=== PATIENT | female | born 1955 | race Hispanic/Latino ===

== ENCOUNTER 2017-10-24 18:13 | Emergency (ER) | payer MEDICARE ==
[2017-10-24 18:43] LABS: BASOPHILS % (AUTO) 0.3 % (0.0-5.0); EOSINOPHILS % (AUTO) 0.1 % (0.0-8.0); HEMATOCRIT 32.3 % (36-48); MEAN CORPUSCULAR HGB CONC 34.9 g/dL (32.0-36.0); MEAN CORPUSCULAR VOLUME 88.7 fL (79-99); MONOCYTES % (AUTO) 0.3 % (3.0-13.0); NEUTROPHILS % (AUTO) 96.3 % (40.0-77.0); PLATELET COUNT (AUTO) 168 K/uL (130-400); RED BLOOD CELL COUNT(AUTO) 3.64 MIL/uL (4.00-5.50); RED CELL DISTRIBUTION WIDTH 16.1 % (11.0-15.5)
[2017-10-24 18:52] LABS: CREATININE 0.8 mg/dL (0.5-1.5); POTASSIUM 3.5 mmol/L (3.5-5.1)
[2017-10-24] MEDS ORDERED: SODIUM CHLORIDE 0.9% 1000ML 1,000 ML IV ONE (18:55)
[2017-10-24] MEDS ORDERED: ACETAMINOPHEN 650 MG SUPPOSITORY RC ONE (18:55)
[2017-10-24] MEDS ORDERED: ONDANSETRON HCL MDV 20ML 2 MG/ML VIAL ONE (18:55)
[2017-10-24 18:56] LABS: ALBUMIN 3.4 g/dL (3.5-5.0); BILIRUBIN,TOTAL 0.9 mg/dL (0.2-1.0); TOTAL PROTEIN, SERUM 6.6 g/dL (6.0-8.3)
[2017-10-24 19:35] LABS: APPEARANCE,URINE Clear (CLEAR); BILIRUBIN,URINE Negative (NEGATIVE); COLOR,URINE Yellow (YELLOW); GLUCOSE, URINE (UA) Negative (NEGATIVE); KETONES,URINE Negative (NEGATIVE); LEUKOCYTE ESTERASE ,URINE Negative (NEGATIVE); NITRATE,URINE Negative (NEGATIVE); OCCULT BLOOD,URINE Moderate (NEGATIVE); PROTEIN,URINE POS 1+ (NEGATIVE)
[2017-10-24 19:44] LABS: BACTERIA,URINE Few /HPF (None Seen); SQUAMOUS EPITHELIAL CELL,UR 0-2 /HPF (0-2); WBC,URINE 0-1 /HPF (0-1)
[2017-10-24] MEDS ORDERED: DICYCLOMINE HCL 10 MG/ML 2ML AMP IM ONE (20:51)
== END 2017-10-24 23:50 | disposition home or self-care (01) ==
LOC: EDH 18:13
DX: R10.12 Left upper quadrant pain (principal); R50.9 Fever, unspecified
CPT/HCPCS: 36415; 76700; 80053; 83690; 85025; 96361; 96372; 96374; 99285; J0500; J7030

== ENCOUNTER 2018-04-15 04:25 | Emergency (ER) | payer MEDICARE ==
[2018-04-15] MEDS ORDERED: ONDANSETRON HCL 4 MG/2 ML VIAL ONE (04:33)
[2018-04-15] MEDS ORDERED: MORPHINE SULFATE 4 MG/1ML SYG ONE (04:33)
== END 2018-04-15 06:31 | disposition home or self-care (01) ==
LOC: EDH 04:25
DX: S42.142A Displaced fracture of glenoid cavity of scapula, left shoulder, initial encounter for closed fracture (principal); Z94.4 Liver transplant status; W18.39XA Other fall on same level, initial encounter; Y93.89 Activity, other specified; Y92.009 Unspecified place in unspecified non-institutional (private) residence as the place of occurrence of the external cause; Y99.8 Other external cause status
CPT/HCPCS: 73000; 73200; 96374; 96375; 99284; J2270; J2405

== ENCOUNTER 2018-06-22 05:46 | Day surgery (SDC) | payer MEDICARE ==
[~2018-06-22] VITALS: Ht 157.5 cm; Wt 95.9 kg
[~2018-06-22 05:46] MED LIST: ASPI-1005 PO; DOCU-116 PO; FAMO40TA7 PO; MULT-1203 PO; SENN8.6T32 PO; TACR5CAP PO; TRAM50TA2 PO
[2018-06-22] MEDS ORDERED: SODIUM CHLORIDE 0.9% 1000ML 1,000 ML IV ONE (05:55)
[2018-06-22 06:22] VITALS: BP 130/77
[2018-06-22] MEDS ORDERED: PROPOFOL 10 MG/ML 20ML VIAL IV ONE ×2 (06:33)
[2018-06-22 06:44] VITALS: BP 93/50
[2018-06-22 06:49] VITALS: BP 88/55
[2018-06-22 06:54] VITALS: BP 98/59
[2018-06-22 07:00] VITALS: BP 110/75
--- NOTE | 2018-06-22 08:00 | NUR ---
PT TOLERATE PROCEDURE WELL, NO C/P OF PAIN S/P PROCEDURE. DISCHARGE INSTRUCTION GIVEN TO PT AND FRIEND MAXIM, BOTH VERBALIZED UNDERSTANDING. PT STATES HER DAUGHTER WILL TAKE CARE OF HER TONIGHT. PT STATES SHE WILL LEAVE HER CAR BEHIND,AND HAVE FAMILY FRIEND COME TO [employer]. PT ASSISTED TO BEDSIDE AND DRESSED, NO DISTRESS IN STALE CONDITION. PT PLACED IN WHEELCHAIR, DRIVEN HOME BY FRIEND MAXIM.
== END 2018-06-22 08:00 | disposition home or self-care (01) ==
LOC: ENDO 05:46 → DAH 05:46 → ENDO 08:00
PROVIDERS: ATTEND Internal Medicine Gastroenterology
DX: K29.50 Unspecified chronic gastritis without bleeding (principal); B96.81 Helicobacter pylori [H. pylori] as the cause of diseases classified elsewhere; K22.8 Other specified diseases of esophagus; K31.89 Other diseases of stomach and duodenum; Z79.899 Other long term (current) drug therapy; I10 Essential (primary) hypertension; F41.9 Anxiety disorder, unspecified; K74.60 Unspecified cirrhosis of liver; Z98.51 Tubal ligation status; Z98.890 Other specified postprocedural states; Z79.01 Long term (current) use of anticoagulants; Z68.38 Body mass index [BMI] 38.0-38.9, adult
CPT/HCPCS: 43239; 88305; 88312; A4606; J2704 ×2; J7030

== ENCOUNTER → 2018-06-30 | Outpatient (CLI) | payer MEDICARE | END | disposition home or self-care (01) | LOC: RAH 10:18 | PROVIDERS: ATTEND Orthopaedic Surgery Adult Reconstructive Orthopaedic Surgery | DX: M17.12 Unilateral primary osteoarthritis, left knee (principal) | CPT/HCPCS: 73562 ==

== ENCOUNTER → 2018-11-16 | Outpatient (CLI) | payer MEDICARE | END | disposition home or self-care (01) | LOC: RAH 08:48 | PROVIDERS: ATTEND Orthopaedic Surgery Adult Reconstructive Orthopaedic Surgery | DX: M17.11 Unilateral primary osteoarthritis, right knee (principal); M25.561 Pain in right knee; Z96.651 Presence of right artificial knee joint | CPT/HCPCS: 73562 ==

== ENCOUNTER 2019-05-07 08:01 | Emergency (ER) | payer MEDICARE ==
[2019-05-07 08:33] LABS: BASOPHILS % (AUTO) 0.2 % (0.0-5.0); EOSINOPHILS % (AUTO) 0.8 % (0.0-8.0); HEMATOCRIT 41.1 % (36-48); LYMPHOCYTES % (AUTO) 14.2 % (21.0-51.0); MEAN CORPUSCULAR HEMOGLOBIN 30.3 pg (27.0-33.0); MEAN CORPUSCULAR HGB CONC 32.8 g/dL (32.0-36.0); MEAN CORPUSCULAR VOLUME 92.2 fL (79-99); MONOCYTES % (AUTO) 13.6 % (3.0-13.0); PLATELET COUNT (AUTO) 220 K/uL (130-400); RED BLOOD CELL COUNT(AUTO) 4.46 MIL/uL (4.00-5.50); RED CELL DISTRIBUTION WIDTH 11.9 % (11.0-15.5); WHITE BLOOD COUNT (AUTO) 8.4 K/uL (4.8-10.8)
[2019-05-07 08:37] LABS: APPEARANCE,URINE Clear (CLEAR); BILIRUBIN,URINE Negative (NEGATIVE); COLOR,URINE Yellow (YELLOW); GLUCOSE, URINE (UA) Negative (NEGATIVE); KETONES,URINE Negative (NEGATIVE); LEUKOCYTE ESTERASE ,URINE Moderate (NEGATIVE); NITRATE,URINE Negative (NEGATIVE); OCCULT BLOOD,URINE Trace (NEGATIVE); PH,URINE 5.5 (5.0-8.0); PROTEIN,URINE POS 1+ mg/dL (NEGATIVE); UROBILINOGEN,URINE 0.2 mg/dL (0.2-1.0)
[2019-05-07 08:43] LABS: RBC,URINE 0-1 /HPF (0-1)
[2019-05-07 08:44] LABS: BACTERIA,URINE Moderate /HPF (None Seen); SQUAMOUS EPITHELIAL CELL,UR Rare /HPF (0-2); WBC,URINE 51-100 /HPF (0-1)
[2019-05-07 09:25] LABS: ALBUMIN 3.6 g/dL (3.5-5.0); BILIRUBIN,DIRECT 0.1 mg/dL (0.0-0.3); BILIRUBIN,TOTAL 0.4 mg/dL (0.2-1.0)
[2019-05-07 09:36] LABS: RAPID GROUP A STREP NEGATIVE (NEGATIVE)
[2019-05-07] MEDS ORDERED: CEFTRIAXONE SODIUM 1 GM ONE (10:44)
== END 2019-05-07 12:20 | disposition home or self-care (01) ==
LOC: EDH 08:01
DX: N30.00 Acute cystitis without hematuria (principal); J06.9 Acute upper respiratory infection, unspecified; L40.9 Psoriasis, unspecified; Z98.890 Other specified postprocedural states
CPT/HCPCS: 36415; 71046; 80048; 80076; 81001; 83605; 85025; 87040 ×2; 87077; 87088; 87186; 87804 ×2; 87880; 96374; 99285; J0696

== ENCOUNTER 2020-02-05 10:31 | Emergency (ER) | payer MEDICARE ==
[~2020-02-05 10:31] MED LIST changes: -TACR5CAP PO; +TACR5CAP2 PO
[2020-02-05 11:11] LABS: BASOPHILS % (AUTO) 0.8 % (0.0-5.0); EOSINOPHILS % (AUTO) 3.6 % (0.0-8.0); HEMATOCRIT 38.5 % (36-48); MEAN CORPUSCULAR HEMOGLOBIN 31.5 pg (27.0-33.0); MEAN CORPUSCULAR HGB CONC 34.8 g/dL (32.0-36.0); MEAN CORPUSCULAR VOLUME 90.6 fL (79-99); MONOCYTES % (AUTO) 10.2 % (3.0-13.0); NEUTROPHILS % (AUTO) 39.2 % (40.0-77.0); PLATELET COUNT (AUTO) 273 K/uL (130-400); RED BLOOD CELL COUNT(AUTO) 4.25 MIL/uL (4.00-5.50); RED CELL DISTRIBUTION WIDTH 11.9 % (11.0-15.5)
[2020-02-05 11:22] LABS: CREATININE 0.9 mg/dL (0.5-1.5); POTASSIUM 4.3 mmol/L (3.5-5.1)
[2020-02-05 11:30] LABS: ALBUMIN 3.6 g/dL (3.5-5.0); BILIRUBIN,DIRECT 0.1 mg/dL (0.0-0.3); BILIRUBIN,TOTAL 0.2 mg/dL (0.2-1.0)
[2020-02-05 11:36] LABS: INR 0.91 (0.85-1.15); PARTIAL THROMBOPLASTIN TIME 25.4 SEC (26.3-35.5); PROTHROMBIN TIME 9.9 SEC (9.6-11.6)
[2020-02-05] MEDS ORDERED: DIAZEPAM 5 MG/ML 2 ML SYG ONE (19:13)
== END 2020-02-05 13:40 | disposition home or self-care (01) ==
LOC: EDH 10:31
DX: S43.401A Unspecified sprain of right shoulder joint, initial encounter (principal); X58.XXXA Exposure to other specified factors, initial encounter; Y93.89 Activity, other specified; Y92.098 Other place in other non-institutional residence as the place of occurrence of the external cause; Y99.8 Other external cause status
CPT/HCPCS: 36415; 71045; 80048; 80076; 82140; 82550; 83690; 84484; 85025; 85610; 85730; 93005; 96374; 99285; J3360

== ENCOUNTER 2020-05-20 13:47 | Emergency (ER) | payer MEDICARE ==
[2020-05-20 14:08] LABS: BASOPHILS % (AUTO) 0.5 % (0.0-5.0); EOSINOPHILS % (AUTO) 0.3 % (0.0-8.0); HEMATOCRIT 40.2 % (36-48); LYMPHOCYTES % (AUTO) 15.8 % (21.0-51.0); MEAN CORPUSCULAR HEMOGLOBIN 31.4 pg (27.0-33.0); MEAN CORPUSCULAR HGB CONC 35.1 g/dL (32.0-36.0); MEAN CORPUSCULAR VOLUME 89.5 fL (79-99); MONOCYTES % (AUTO) 6.6 % (3.0-13.0); NEUTROPHILS % (AUTO) 76.5 % (40.0-77.0); PLATELET COUNT (AUTO) 246 K/uL (130-400); RED BLOOD CELL COUNT(AUTO) 4.49 MIL/uL (4.00-5.50); RED CELL DISTRIBUTION WIDTH 12.2 % (11.0-15.5); WHITE BLOOD COUNT (AUTO) 11.9 K/uL (4.8-10.8)
[2020-05-20 14:17] LABS: POTASSIUM 3.9 mmol/L (3.5-5.1)
[2020-05-20 14:21] LABS: ALBUMIN 4.1 g/dL (3.5-5.0); BILIRUBIN,TOTAL 0.7 mg/dL (0.2-1.0); TOTAL PROTEIN, SERUM 8.2 g/dL (6.0-8.3)
[2020-05-20] MEDS ORDERED: ONDANSETRON 4MG INJ ONE (14:46)
[2020-05-20] MEDS ORDERED: 0.9%NACL 1000ML 1,000 ML IV ONE (14:47)
[2020-05-20] MEDS ORDERED: DEXTROSE 50%-WATER 50 ML DISP.SYRIN IV ONE (14:51)
[2020-05-20] MEDS ORDERED: MORPHINE 4 MG SYG ONE (14:56)
[2020-05-20 15:57] LABS: APPEARANCE,URINE CLOUDY (CLEAR); BILIRUBIN,URINE NEGATIVE (NEGATIVE); COLOR,URINE YELLOW (YELLOW); GLUCOSE, URINE (UA) 250 mg/dL (NEGATIVE); KETONES,URINE NEGATIVE (NEGATIVE); LEUKOCYTE ESTERASE ,URINE LARGE (NEGATIVE); NITRATE,URINE NEGATIVE (NEGATIVE); OCCULT BLOOD,URINE LARGE (NEGATIVE); PROTEIN,URINE 30 mg/dL (NEGATIVE); UROBILINOGEN,URINE 0.2 mg/dL (0.2-1.0)
[2020-05-20 16:14] LABS: WBC,URINE 51-100 /HPF (0-1)
[2020-05-20 16:15] LABS: BACTERIA,URINE Rare /HPF (None Seen); SQUAMOUS EPITHELIAL CELL,UR Few /HPF (0-2)
[2020-05-20] MEDS ORDERED: LEVOFLOXACIN 500 MG TABLET ONE (16:30)
[2020-05-20] MEDS ORDERED: PHENAZOPYRIDINE HCL 200 MG TABLET ONE (16:30)
== END 2020-05-20 17:10 | disposition home or self-care (01) ==
LOC: EDH 13:47
DX: N39.0 Urinary tract infection, site not specified (principal); E66.01 Morbid (severe) obesity due to excess calories; L40.9 Psoriasis, unspecified; Z94.4 Liver transplant status; Z68.41 Body mass index [BMI] 40.0-44.9, adult
CPT/HCPCS: 36415; 80053; 81001; 82948; 83690; 85025; 87088; 96365; 96366; 96375; 99284; J2270; J2405; J7030; J7070

== ENCOUNTER 2021-11-04 04:38 | Emergency (ER) | payer MEDICARE ==
[~2021-11-04] VITALS: Ht 154.9 cm; Wt 102.1 kg
[2021-11-04] MEDS ORDERED: MORPHINE 4 MG SYG ONE (05:01)
[2021-11-04] MEDS ORDERED: ONDANSETRON 4MG INJ ONE (05:01)
[2021-11-04 05:14] LABS: BASOPHILS % (AUTO) 0.9 % (0.0-5.0); HEMATOCRIT 40.3 % (36-48); LYMPHOCYTES % (AUTO) 47.6 % (21.0-51.0); MEAN CORPUSCULAR HEMOGLOBIN 31.3 pg (27.0-33.0); MEAN CORPUSCULAR HGB CONC 35.2 g/dL (32.0-36.0); MEAN CORPUSCULAR VOLUME 88.8 fL (79-99); MONOCYTES % (AUTO) 7.9 % (3.0-13.0); NEUTROPHILS % (AUTO) 38.4 % (40.0-77.0); PLATELET COUNT (AUTO) 302 K/uL (130-400); RED BLOOD CELL COUNT(AUTO) 4.54 MIL/uL (4.00-5.50); RED CELL DISTRIBUTION WIDTH 11.9 % (11.0-15.5); WHITE BLOOD COUNT (AUTO) 6.3 K/uL (4.8-10.8)
[2021-11-04] MEDS ORDERED: 0.9%NACL 1000ML 1,000 ML IV ONE (05:16)
[2021-11-04 05:22] LABS: CREATININE 0.8 mg/dL (0.5-1.5); POTASSIUM 4.3 mmol/L (3.5-5.1)
[2021-11-04 05:26] LABS: ALBUMIN 3.7 g/dL (3.5-5.0); TOTAL PROTEIN, SERUM 7.9 g/dL (6.0-8.3)
[2021-11-04 05:32] LABS: APPEARANCE,URINE CLEAR (CLEAR); BILIRUBIN,URINE NEGATIVE (NEGATIVE); COLOR,URINE YELLOW (YELLOW); GLUCOSE, URINE (UA) NEGATIVE (NEGATIVE); KETONES,URINE NEGATIVE (NEGATIVE); LEUKOCYTE ESTERASE ,URINE NEGATIVE (NEGATIVE); NITRATE,URINE NEGATIVE (NEGATIVE); OCCULT BLOOD,URINE TRACE-INTACT (NEGATIVE); PROTEIN,URINE NEGATIVE (NEGATIVE); UROBILINOGEN,URINE 0.2 mg/dL (0.2-1.0)
[2021-11-04 05:58] LABS: BACTERIA,URINE Moderate /HPF (None Seen); SQUAMOUS EPITHELIAL CELL,UR Many /HPF (0-2)
[2021-11-04 06:09] LABS: MAGNESIUM 1.7 mg/dL (1.80-2.40)
[2021-11-04] MEDS ORDERED: MAGNESIUM OXIDE 400 MG TABLET PO SCH (07:30)
[2021-11-04] MEDS ORDERED: OSELTAMIVIR PHOSPHATE 75 MG CAP PO SCH (07:30)
[2021-11-04] MEDS ORDERED: ONDANSETRON 4MG INJ IVP ONE (08:00)
[2021-11-04] MEDS ORDERED: MORPHINE 4 MG SYG IVP ONE (08:00)
[2021-11-04] MEDS ORDERED: DICYCLOMINE HCL 10 MG/5 ML ML PO ONE (08:00)
[2021-11-04] MEDS ORDERED: LIDOCAINE HCL 2% VISCOUS 15 ML UDCUP PO ONE (08:00)
[2021-11-04] MEDS ORDERED: MAG/ALUM/SIMETH 30 ML UDCUP PO ONE (08:00)
[2021-11-04] MEDS ORDERED: OSEL75 PO (08:35)
[2021-11-04] MEDS ORDERED: ACET-2079 PO (08:35)
[2021-11-04 08:37] VITALS: BP 140/75
== END 2021-11-04 08:48 | disposition home or self-care (01) ==
LOC: EDH 04:38
DX: J10.1 Influenza due to other identified influenza virus with other respiratory manifestations (principal); R10.9 Unspecified abdominal pain; R19.7 Diarrhea, unspecified; Z20.822 Contact with and (suspected) exposure to COVID-19; Z79.82 Long term (current) use of aspirin; Z79.899 Other long term (current) drug therapy; Z94.4 Liver transplant status; Z96.651 Presence of right artificial knee joint
CPT/HCPCS: 99284; 82150; 83735; 80053; 83690; 85025; 87040 ×2; 87088; 87804 ×2; 83605; 81001; 36415; 87635; 74176; 96374; 96361; 96375; 96376; C9803; J7030; J2405 ×2; J2270 ×2

== ENCOUNTER 2023-05-25 01:09 | Emergency (ER) | payer MEDICARE ==
[~2023-05-25] VITALS: Ht 157.5 cm; Wt 103.0 kg
[~2023-05-25 01:09] MED LIST changes: +CEFD300C3 PO; +DICL25TA11 PO; +DICY20TA2 PO; -FAMO40TA7 PO; +FLUT16H NASAL; -SENN8.6T32 PO; -TRAM50TA2 PO
[2023-05-25 01:33] LABS: APPEARANCE,URINE CLOUDY (CLEAR); BILIRUBIN,URINE NEGATIVE (NEGATIVE); COLOR,URINE COLORLESS (YELLOW); GLUCOSE, URINE (UA) NEGATIVE (NEGATIVE); KETONES,URINE NEGATIVE (NEGATIVE); LEUKOCYTE ESTERASE ,URINE 500 Leu/uL (NEGATIVE); NITRATE,URINE NEGATIVE (NEGATIVE); OCCULT BLOOD,URINE SMALL (NEGATIVE); PROTEIN,URINE 10 mg/dL (NEGATIVE); UROBILINOGEN,URINE 0.2 mg/dL (0.2-1.0)
[2023-05-25 01:35] LABS: ADD UA MICROSCOPIC YES
[2023-05-25 01:37] LABS: BASOPHILS # (AUTO) 0.06 K/uL (0.00-0.20); BASOPHILS % (AUTO) 0.6 % (0.0-5.0); EOSINOPHILS # (AUTO) 0.22 K/uL (0.00-0.70); EOSINOPHILS % (AUTO) 2.3 % (0.0-8.0); HEMATOCRIT 38.5 % (36-48); IMMATURE GRANULOCYTE ABSOLUTE 0.04 K/uL (0-1); LYMPHOCYTES # (AUTO) 2.1 K/uL (1.0-4.8); LYMPHOCYTES % (AUTO) 22.3 % (21.0-51.0); MEAN CORPUSCULAR HEMOGLOBIN 32.4 pg (27.0-33.0); MEAN CORPUSCULAR HGB CONC 34.8 g/dL (32.0-36.0); MONOCYTES % (AUTO) 10.2 % (3.0-13.0); NEUTROPHILS # (AUTO) 6.1 K/uL (1.8-7.7); NEUTROPHILS % (AUTO) 64.2 % (40.0-77.0); PLATELET COUNT (AUTO) 238 K/uL (130-400); RED BLOOD CELL COUNT(AUTO) 4.14 MIL/uL (4.00-5.50); WHITE BLOOD COUNT (AUTO) 9.5 K/uL (4.8-10.8)
[2023-05-25 01:40] LABS: BACTERIA,URINE RARE /HPF (None Seen); SQUAMOUS EPITHELIAL CELL,UR FEW /HPF (0-2); WBC,URINE 51-100 /HPF (0-1)
[2023-05-25 01:45] LABS: CREATININE 0.7 mg/dL (0.5-1.5); POTASSIUM 4.2 mmol/L (3.5-5.1)
[2023-05-25 01:50] LABS: ALBUMIN 3.5 g/dL (3.5-5.0); BILIRUBIN,TOTAL 0.3 mg/dL (0.2-1.0); TOTAL PROTEIN, SERUM 7.7 g/dL (6.0-8.3)
[2023-05-25] MEDS ORDERED: CEFU500T67 PO (05:22)
[2023-05-25] MEDS ORDERED: DICY20TA2 PO (05:22)
[2023-05-25 05:56] VITALS: BP 158/72; PULSE 88; RESP 16; O2SAT 99
== END 2023-05-25 05:59 | disposition home or self-care (01) ==
LOC: EDH 01:09
DX: N39.0 Urinary tract infection, site not specified (principal); Z79.82 Long term (current) use of aspirin; Z79.899 Other long term (current) drug therapy; Z98.890 Other specified postprocedural states
CPT/HCPCS: 36415; 74176; 80053; 81001; 83690; 85025; 87077; 87088; 87186

== ENCOUNTER 2023-09-28 06:17 | Emergency (ER) | payer OTHER, MEDICARE ==
[~2023-09-28] VITALS: Ht 157.5 cm; Wt 96.2 kg
[~2023-09-28 06:17] MED LIST changes: -CEFD300C3 PO; +CEFU500T67 PO; -DICL25TA11 PO; -FLUT16H NASAL
[2023-09-28 06:53] LABS: BASOPHILS # (AUTO) 0.05 K/uL (0.00-0.20); BASOPHILS % (AUTO) 0.5 % (0.0-5.0); EOSINOPHILS # (AUTO) 0.25 K/uL (0.00-0.70); EOSINOPHILS % (AUTO) 2.7 % (0.0-8.0); HEMATOCRIT 41.9 % (36-48); IMMATURE GRANULOCYTE ABSOLUTE 0.03 K/uL (0-1); MEAN CORPUSCULAR HEMOGLOBIN 32.4 pg (27.0-33.0); MEAN CORPUSCULAR VOLUME 89.9 fL (79-99); MONOCYTES # (AUTO) 0.7 K/uL (0.1-1.0); MONOCYTES % (AUTO) 7.1 % (3.0-13.0); NEUTROPHILS # (AUTO) 6.4 K/uL (1.8-7.7); NEUTROPHILS % (AUTO) 68.4 % (40.0-77.0); PLATELET COUNT (AUTO) 206 K/uL (130-400); RED BLOOD CELL COUNT(AUTO) 4.66 MIL/uL (4.00-5.50); RED CELL DISTRIBUTION WIDTH 12.3 % (11.0-15.5); WHITE BLOOD COUNT (AUTO) 9.4 K/uL (4.8-10.8)
[2023-09-28 07:08] LABS: ALBUMIN 3.9 g/dL (3.5-5.0); BILIRUBIN,TOTAL 0.9 mg/dL (0.2-1.0); POTASSIUM 3.7 mmol/L (3.5-5.1); TOTAL PROTEIN, SERUM 7.8 g/dL (6.0-8.3)
[2023-09-28 07:13] LABS: INR 0.94 (0.85-1.15); PROTHROMBIN TIME 11.1 SEC (9.6-11.6)
[2023-09-28 07:14] LABS: PARTIAL THROMBOPLASTIN TIME 28.3 SEC (26.3-35.5)
[2023-09-28] MEDS: MAG/ALUM/SIMETH 30 ML UDCUP PO ONE (08:48)
[2023-09-28] MEDS: PANTOPRAZOLE 40 MG/VIAL IVP ONE (08:48)
[2023-09-28] MEDS: LIDOCAINE HCL 2% VISCOUS 15 ML UDCUP PO ONE (08:48)
[2023-09-28] MEDS ORDERED: MAG-37 PO (09:10)
[2023-09-28 09:41] LABS: APPEARANCE,URINE CLOUDY (CLEAR); BILIRUBIN,URINE NEGATIVE (NEGATIVE); COLOR,URINE LIGHT-YELLOW (YELLOW); GLUCOSE, URINE (UA) NEGATIVE (NEGATIVE); KETONES,URINE NEGATIVE (NEGATIVE); LEUKOCYTE ESTERASE ,URINE 250 Leu/uL (NEGATIVE); NITRATE,URINE NEGATIVE (NEGATIVE); PH,URINE 5.5 (5.0-8.0); PROTEIN,URINE 70 mg/dL (NEGATIVE); UROBILINOGEN,URINE 0.2 mg/dL (0.2-1.0)
[2023-09-28 09:43] LABS: ADD UA MICROSCOPIC YES
[2023-09-28 10:05] LABS: BACTERIA,URINE RARE /HPF (None Seen); RBC,URINE 0-1 /HPF (0-1); SQUAMOUS EPITHELIAL CELL,UR FEW /HPF (0-2)
[2023-09-28] MEDS ORDERED: CEPH500B PO (10:12)
[2023-09-28 10:29] VITALS: BP 154/83; PULSE 99; RESP 17; O2SAT 98
== END 2023-09-28 10:29 | disposition home or self-care (01) ==
LOC: EDH 06:17
DX: K21.9 Gastro-esophageal reflux disease without esophagitis (principal); K74.60 Unspecified cirrhosis of liver; Z79.621 Long term (current) use of calcineurin inhibitor; Z79.82 Long term (current) use of aspirin
CPT/HCPCS: 99284; 96374; 80053; 83690; 85025; 85610; 85730; 87077; 87088; 87186; 83605 ×2; 81001; 36415; 84145; C9113

== ENCOUNTER 2023-10-15 23:02 | Inpatient (IN) | payer OTHER, MEDICARE ==
[~2023-10-15] VITALS: Ht 157.5 cm; Wt 95.6 kg
[~2023-10-15 23:02] MED LIST changes: +CEPH500B PO; +MAG-37 PO
[2023-10-15 23:47] LABS: BASOPHILS # (AUTO) 0.09 K/uL (0.00-0.20); BASOPHILS % (AUTO) 1.4 % (0.0-5.0); EOSINOPHILS # (AUTO) 0.32 K/uL (0.00-0.70); HEMATOCRIT 39.4 % (36-48); IMMATURE GRANULOCYTE ABSOLUTE 0.01 K/uL (0-1); LYMPHOCYTES % (AUTO) 31.3 % (21.0-51.0); MEAN CORPUSCULAR HEMOGLOBIN 32.3 pg (27.0-33.0); MEAN CORPUSCULAR HGB CONC 35.8 g/dL (32.0-36.0); MEAN CORPUSCULAR VOLUME 90.2 fL (79-99); MONOCYTES # (AUTO) 0.7 K/uL (0.1-1.0); MONOCYTES % (AUTO) 11.5 % (3.0-13.0); NEUTROPHILS # (AUTO) 3.3 K/uL (1.8-7.7); NEUTROPHILS % (AUTO) 50.6 % (40.0-77.0); PLATELET COUNT (AUTO) 301 K/uL (130-400); RED BLOOD CELL COUNT(AUTO) 4.37 MIL/uL (4.00-5.50); RED CELL DISTRIBUTION WIDTH 11.9 % (11.0-15.5); WHITE BLOOD COUNT (AUTO) 6.5 K/uL (4.8-10.8)
[2023-10-15 23:56] LABS: CREATININE 0.8 mg/dL (0.5-1.0); POTASSIUM 3.5 mmol/L (3.5-5.1)
[2023-10-16] VITALS (7 sets, daily range): BP systolic 134–161; BP diastolic 72–93; PULSE 66–106; RESP 18–24; O2SAT 96
[2023-10-16 00:01] LABS: ALBUMIN 3.4 g/dL (3.5-5.0); BILIRUBIN,TOTAL 0.5 mg/dL (0.2-1.0); TOTAL PROTEIN, SERUM 7.2 g/dL (6.0-8.3)
[2023-10-16] MEDS: ONDANSETRON 4MG INJ IVP ONE (01:01)
[2023-10-16] MEDS: 0.9%NACL 1000ML 1,000 ML IV ONE (01:01)
[2023-10-16 01:14] LABS: APPEARANCE,URINE CLEAR (CLEAR); BILIRUBIN,URINE NEGATIVE (NEGATIVE); COLOR,URINE COLORLESS (YELLOW); GLUCOSE, URINE (UA) NEGATIVE (NEGATIVE); KETONES,URINE NEGATIVE (NEGATIVE); LEUKOCYTE ESTERASE ,URINE NEGATIVE Leu/uL (NEGATIVE); NITRATE,URINE NEGATIVE (NEGATIVE); OCCULT BLOOD,URINE NEGATIVE (NEGATIVE); PROTEIN,URINE NEGATIVE (NEGATIVE); UROBILINOGEN,URINE 0.2 mg/dL (0.2-1.0)
[2023-10-16 01:19] LABS: ADD UA MICROSCOPIC NO
[2023-10-16] MEDS: PROMETHAZINE HCL 25 MG/ML 1ML AMPULE IM ONE (03:17)
[2023-10-16] MEDS: ONDANSETRON 4MG INJ ONE (06:12)
[2023-10-16] MEDS ORDERED: ONDANSETRON 4MG INJ IVP PRN (10:00)
[2023-10-16 10:15] LABS: BASOPHILS # (AUTO) 0.05 K/uL (0.00-0.20); BASOPHILS % (AUTO) 0.6 % (0.0-5.0); EOSINOPHILS # (AUTO) 0.07 K/uL (0.00-0.70); EOSINOPHILS % (AUTO) 0.9 % (0.0-8.0); HEMATOCRIT 37.3 % (36-48); IMMATURE GRANULOCYTE ABSOLUTE 0.02 K/uL (0-1); LYMPHOCYTES # (AUTO) 1.4 K/uL (1.0-4.8); LYMPHOCYTES % (AUTO) 17.3 % (21.0-51.0); MEAN CORPUSCULAR HEMOGLOBIN 31.8 pg (27.0-33.0); MEAN CORPUSCULAR HGB CONC 35.4 g/dL (32.0-36.0); MEAN CORPUSCULAR VOLUME 89.9 fL (79-99); MONOCYTES # (AUTO) 0.7 K/uL (0.1-1.0); MONOCYTES % (AUTO) 8.4 % (3.0-13.0); NEUTROPHILS # (AUTO) 5.9 K/uL (1.8-7.7); NEUTROPHILS % (AUTO) 72.6 % (40.0-77.0); PLATELET COUNT (AUTO) 261 K/uL (130-400); RED BLOOD CELL COUNT(AUTO) 4.15 MIL/uL (4.00-5.50); RED CELL DISTRIBUTION WIDTH 12.1 % (11.0-15.5); WHITE BLOOD COUNT (AUTO) 8.2 K/uL (4.8-10.8)
[2023-10-16] MEDS: 0.9%NACL 1000ML 1,000 ML IV SCH (10:35)
[2023-10-16] MEDS: ZOSYN 3.375GM +NS 50ML IV SCH (10:35)
[2023-10-16] MEDS: PANTOPRAZOLE 40 MG/VIAL IVP SCH (10:36)
[2023-10-16] MEDS ORDERED: TACR1GRA PO ×2 (10:57)
[2023-10-16] MEDS ORDERED: MAG-37 PO (10:57)
[2023-10-16 10:58] LABS: ALBUMIN 3.1 g/dL (3.5-5.0); BILIRUBIN,TOTAL 0.9 mg/dL (0.2-1.0); CREATININE 0.9 mg/dL (0.5-1.0); POTASSIUM 3.4 mmol/L (3.5-5.1); TOTAL PROTEIN, SERUM 6.6 g/dL (6.0-8.3)
[2023-10-16] MEDS ORDERED: MAGNESIUM 2GM PREMIX 50ML 50 ML IV PRN (13:30)
[2023-10-16] MEDS: KCL 20 MEQ ERTAB PO PRN (18:19)
[2023-10-16] MEDS ORDERED: POTASSIUM CHLORIDE 20MEQ/100ML 100 ML IV PRN (18:30)
[2023-10-16] MEDS: TACROLIMUS 1 MG CAPSULE PO SCH (20:04)
[2023-10-16] MEDS: METOPROLOL TARTRATE 1 MG/ML 5ML VIAL IV PRN (20:04)
[2023-10-16] MEDS: HYDROXYZINE 10 MG TABLET PO SCH (20:04)
[2023-10-16] MEDS ORDERED: TACROLIMUS 3 MG PO SCH (21:00)
[2023-10-16] MEDS: POTASSIUM CHLORIDE 10% ELIXIR 20 MEQ/15 ML UDCUP PO PRN (22:12)
[2023-10-17] VITALS: BP 138/85; PULSE 70; RESP 22
[2023-10-17 04:00] VITALS: BP 124/93; PULSE 65; RESP 24
[2023-10-17 05:34] LABS: BASOPHILS # (AUTO) 0.04 K/uL (0.00-0.20); BASOPHILS % (AUTO) 0.8 % (0.0-5.0); EOSINOPHILS # (AUTO) 0.43 K/uL (0.00-0.70); EOSINOPHILS % (AUTO) 8.7 % (0.0-8.0); HEMATOCRIT 38.4 % (36-48); IMMATURE GRANULOCYTE ABSOLUTE 0.01 K/uL (0-1); LYMPHOCYTES # (AUTO) 1.5 K/uL (1.0-4.8); LYMPHOCYTES % (AUTO) 29.5 % (21.0-51.0); MEAN CORPUSCULAR HEMOGLOBIN 32.3 pg (27.0-33.0); MEAN CORPUSCULAR HGB CONC 33.9 g/dL (32.0-36.0); MEAN CORPUSCULAR VOLUME 95.5 fL (79-99); MONOCYTES # (AUTO) 0.5 K/uL (0.1-1.0); MONOCYTES % (AUTO) 10.6 % (3.0-13.0); NEUTROPHILS # (AUTO) 2.5 K/uL (1.8-7.7); NEUTROPHILS % (AUTO) 50.2 % (40.0-77.0); PLATELET COUNT (AUTO) 230 K/uL (130-400); RED BLOOD CELL COUNT(AUTO) 4.02 MIL/uL (4.00-5.50); RED CELL DISTRIBUTION WIDTH 12.2 % (11.0-15.5); WHITE BLOOD COUNT (AUTO) 4.9 K/uL (4.8-10.8)
[2023-10-17 07:20] LABS: BILIRUBIN,TOTAL 1.2 mg/dL (0.2-1.0); CREATININE 0.8 mg/dL (0.5-1.0); POTASSIUM 3.8 mmol/L (3.5-5.1); TOTAL PROTEIN, SERUM 6.6 g/dL (6.0-8.3)
[2023-10-17 07:38] VITALS: O2SAT 96
[2023-10-17] MEDS: TACROLIMUS 1 MG CAPSULE PO SCH (07:38)
[2023-10-17 08:36] VITALS: BP 152/78; PULSE 69; RESP 18
[2023-10-17] MEDS ORDERED: TACROLIMUS 3 MG PO SCH (09:00)
[2023-10-17] MEDS ORDERED: CEPH500C2 PO (10:07)
[2023-10-17] MEDS ORDERED: HYDROXYZINE 10 MG TABLET PO SCH (12:00)
[2023-10-20 00:08] LABS: C DIFFICILE TOXIN A/B Not Detected (Not Detected); ENTEROAGGREGATIVE ECOLI Not Detected (Not Detected); GIARDIA LAMBLIA Not Detected (Not Detected); PLESIOMONAS SHIGELOIDES Not Detected (Not Detected); SAPOVIRUS Not Detected (Not Detected); SHIGELLA/ENTEROINVASIVE E COLI Not Detected (Not Detected); VIBRIO Not Detected (Not Detected); VIBRIO CHOLERAE Not Detected (Not Detected)
== END 2023-10-17 11:25 | disposition home or self-care (01) | DRG 392 ==
LOC: EDH 23:02 → EDHIP 10-16 05:36 → 3BH 10-16 07:45
PROVIDERS: ADMIT Internal Medicine; ATTEND Internal Medicine
DX: K52.9 Noninfective gastroenteritis and colitis, unspecified (principal); E44.1 Mild protein-calorie malnutrition; E87.1 Hypo-osmolality and hyponatremia; Z94.4 Liver transplant status; E83.42 Hypomagnesemia; E86.1 Hypovolemia; E87.6 Hypokalemia; F32.A Depression, unspecified; F41.9 Anxiety disorder, unspecified; F60.7 Dependent personality disorder; G47.00 Insomnia, unspecified; K74.60 Unspecified cirrhosis of liver; Z82.49 Family history of ischemic heart disease and other diseases of the circulatory system; Z68.38 Body mass index [BMI] 38.0-38.9, adult
CPT/HCPCS: 36415; 71045; 74176; 80053; 80197; 81003; 83690; 83735; 84484; 85025; 87426; 87507; 93005; C9113; G0378; J2405; J2543; J2550; J3490; J7030; J7507

== ENCOUNTER 2023-12-27 15:55 | Emergency (ER) | payer OTHER, MEDICARE ==
[~2023-12-27] VITALS: Ht 157.5 cm; Wt 93.9 kg
[~2023-12-27 15:55] MED LIST changes: -ASPI-1005 PO; -CEFU500T67 PO; -CEPH500B PO; -DICY20TA2 PO; -DOCU-116 PO; +TACR1GRA PO; -TACR5CAP2 PO
[2023-12-27] MEDS: FAMOTIDINE 20MG VIAL IV ONE (16:46)
[2023-12-27] MEDS: NITROGLYCERIN 0.4 MG SL TAB SL PRN (16:47)
[2023-12-27 16:59] LABS: BASOPHILS # (AUTO) 0.04 K/uL (0.00-0.20); BASOPHILS % (AUTO) 0.4 % (0.0-5.0); EOSINOPHILS # (AUTO) 0.03 K/uL (0.00-0.70); EOSINOPHILS % (AUTO) 0.3 % (0.0-8.0); HEMATOCRIT 39.2 % (36-48); IMMATURE GRANULOCYTE ABSOLUTE 0.03 K/uL (0-1); LYMPHOCYTES # (AUTO) 1.9 K/uL (1.0-4.8); MEAN CORPUSCULAR HEMOGLOBIN 32.8 pg (27.0-33.0); MEAN CORPUSCULAR HGB CONC 34.7 g/dL (32.0-36.0); MEAN CORPUSCULAR VOLUME 94.5 fL (79-99); MONOCYTES # (AUTO) 0.8 K/uL (0.1-1.0); MONOCYTES % (AUTO) 8.3 % (3.0-13.0); NEUTROPHILS # (AUTO) 6.4 K/uL (1.8-7.7); NEUTROPHILS % (AUTO) 69.7 % (40.0-77.0); PLATELET COUNT (AUTO) 209 K/uL (130-400); RED BLOOD CELL COUNT(AUTO) 4.15 MIL/uL (4.00-5.50); WHITE BLOOD COUNT (AUTO) 9.1 K/uL (4.8-10.8)
[2023-12-27 17:08] LABS: CREATININE 1.2 mg/dL (0.5-1.0); POTASSIUM 3.9 mmol/L (3.5-5.1)
[2023-12-27 17:17] LABS: ALBUMIN 3.4 g/dL (3.5-5.0); BILIRUBIN,TOTAL 0.9 mg/dL (0.2-1.0); TOTAL PROTEIN, SERUM 7.3 g/dL (6.0-8.3)
[2023-12-27 17:49] LABS: APPEARANCE,URINE CLOUDY (CLEAR); BILIRUBIN,URINE NEGATIVE (NEGATIVE); COLOR,URINE YELLOW (YELLOW); GLUCOSE, URINE (UA) NEGATIVE (NEGATIVE); KETONES,URINE 5 mg/dL (NEGATIVE); LEUKOCYTE ESTERASE ,URINE 250 Leu/uL (NEGATIVE); NITRATE,URINE NEGATIVE (NEGATIVE); PROTEIN,URINE 30 mg/dL (NEGATIVE)
[2023-12-27 17:54] LABS: ADD UA MICROSCOPIC YES
[2023-12-27 17:58] LABS: BACTERIA,URINE FEW /HPF (None Seen); MUCUS,URINE RARE LPF (None Seen); OTHER CASTS, URINE 6 /LPF (None Seen); SQUAMOUS EPITHELIAL CELL,UR MOD /HPF (0-2); WBC,URINE 26-50 /HPF (0-1); YEAST,URINE BUDDING FEW /HPF (None Seen)
[2023-12-27] MEDS ORDERED: AMOX1TAB16 PO (18:16)
[2023-12-27] MEDS: AMOX/CLAV 875/125MG TAB PO SCH (18:43)
[2023-12-27 18:44] VITALS: BP 127/75; PULSE 90; RESP 16; O2SAT 98
== END 2023-12-27 19:00 | disposition home or self-care (01) ==
LOC: EDH 15:55
DX: R07.89 Other chest pain (principal); E87.1 Hypo-osmolality and hyponatremia; N30.01 Acute cystitis with hematuria; R74.8 Abnormal levels of other serum enzymes; E86.0 Dehydration; Z79.899 Other long term (current) drug therapy
CPT/HCPCS: 99285; 96374; 71045; 84484; 80053; 83690; 85025; 87086 ×2; 87186; 81001; 36415; 93005; J3490

== ENCOUNTER 2024-01-04 18:16 | Emergency (ER) | payer OTHER, MEDICARE ==
[~2024-01-04] VITALS: Ht 154.9 cm; Wt 91.6 kg
[~2024-01-04 18:16] MED LIST changes: +AMOX1TAB16 PO
[2024-01-04 18:54] LABS: BASOPHILS # (AUTO) 0.04 K/uL (0.00-0.20); BASOPHILS % (AUTO) 0.8 % (0.0-5.0); EOSINOPHILS # (AUTO) 0.06 K/uL (0.00-0.70); EOSINOPHILS % (AUTO) 1.2 % (0.0-8.0); HEMATOCRIT 35.9 % (36-48); IMMATURE GRANULOCYTE ABSOLUTE 0.01 K/uL (0-1); LYMPHOCYTES # (AUTO) 1.6 K/uL (1.0-4.8); LYMPHOCYTES % (AUTO) 30.9 % (21.0-51.0); MEAN CORPUSCULAR HEMOGLOBIN 32.7 pg (27.0-33.0); MEAN CORPUSCULAR HGB CONC 35.7 g/dL (32.0-36.0); MEAN CORPUSCULAR VOLUME 91.6 fL (79-99); MONOCYTES # (AUTO) 0.7 K/uL (0.1-1.0); MONOCYTES % (AUTO) 14.1 % (3.0-13.0); NEUTROPHILS # (AUTO) 2.7 K/uL (1.8-7.7); NEUTROPHILS % (AUTO) 52.8 % (40.0-77.0); PLATELET COUNT (AUTO) 220 K/uL (130-400); RED BLOOD CELL COUNT(AUTO) 3.92 MIL/uL (4.00-5.50); RED CELL DISTRIBUTION WIDTH 13.1 % (11.0-15.5); WHITE BLOOD COUNT (AUTO) 5.2 K/uL (4.8-10.8)
[2024-01-04 19:03] LABS: CREATININE 1.4 mg/dL (0.5-1.0); POTASSIUM 3.4 mmol/L (3.5-5.1)
[2024-01-04 19:44] LABS: APPEARANCE,URINE CLOUDY (CLEAR); BILIRUBIN,URINE NEGATIVE (NEGATIVE); COLOR,URINE YELLOW (YELLOW); GLUCOSE, URINE (UA) NEGATIVE (NEGATIVE); KETONES,URINE NEGATIVE (NEGATIVE); LEUKOCYTE ESTERASE ,URINE 500 Leu/uL (NEGATIVE); NITRATE,URINE NEGATIVE (NEGATIVE); OCCULT BLOOD,URINE NEGATIVE (NEGATIVE); PROTEIN,URINE 20 mg/dL (NEGATIVE)
[2024-01-04 19:45] LABS: ADD UA MICROSCOPIC YES
[2024-01-04 19:49] LABS: BACTERIA,URINE RARE /HPF (None Seen); MUCUS,URINE RARE LPF (None Seen); SQUAMOUS EPITHELIAL CELL,UR FEW /HPF (0-2)
[2024-01-04 19:52] LABS: AMPHET/METH SCREEN,URINE NEGATIVE (NEGATIVE); BARBITURATE SCREEN, URINE NEGATIVE (NEGATIVE); BENZODIAZEPINES SCREEN,URINE NEGATIVE (NEGATIVE); CANNABINOID SCREEN,URINE NEGATIVE (NEGATIVE); COCAINE SCREEN,URINE POSITIVE (NEGATIVE); OPIATE SCREEN,URINE NEGATIVE (NEGATIVE); PHENCYCLIDINE SCREEN,URINE NEGATIVE (NEGATIVE); SARS-CoV-2, RNA, NAAT NEGATIVE SARS CoV-2 (NEGATIVE)
[2024-01-04 19:57] LABS: INFLUENZA TYPE A Negative For Type A (NEGATIVE); INFLUENZA TYPE B Negative For Type B (NEGATIVE)
[2024-01-04] MEDS: ONDANSETRON 4MG INJ IVP ONE (19:58)
[2024-01-04] MEDS: cefTRIAXone 1G VIAL IVPB ONE (19:58)
[2024-01-04] MEDS: FAMOTIDINE 20MG VIAL IV ONE (19:58)
[2024-01-04] MEDS: 0.9% NACL 500ML IV.SOLN 500 ML IV ONE (20:30)
[2024-01-04 22:47] VITALS: BP 132/73; PULSE 75; RESP 16; TEMP 98.3; O2SAT 98
== END 2024-01-04 23:02 | disposition home or self-care (01) ==
LOC: EDH 18:16
DX: R07.89 Other chest pain (principal); F41.9 Anxiety disorder, unspecified; Z20.822 Contact with and (suspected) exposure to COVID-19; Z79.899 Other long term (current) drug therapy; Z98.890 Other specified postprocedural states
CPT/HCPCS: 99285; 96365; 96366; 96375; 71045; 87635; 84484; 80048; 83880; 80305; 85025; 87086; 87804 ×2; 36415; 93005; 81001; J3490; J0696; J2405

== ENCOUNTER 2024-02-25 21:00 | Emergency (ER) | payer OTHER, MEDICARE ==
[~2024-02-25] VITALS: Ht 157.5 cm; Wt 98.4 kg
[2024-02-25 21:03] VITALS: TEMP 98.7
[2024-02-25] MEDS: 0.9%NACL 1000ML 1,000 ML IV ONE (21:20)
[2024-02-25] MEDS: ondanSETRON 4MG INJ IVP ONE (21:24)
[2024-02-25] MEDS: morPHINE 2 MG SYG IVP ONE (21:24)
[2024-02-25 22:06] LABS: BASOPHILS # (AUTO) 0.08 K/uL (0.00-0.20); BASOPHILS % (AUTO) 0.7 % (0.0-5.0); EOSINOPHILS # (AUTO) 0.31 K/uL (0.00-0.70); EOSINOPHILS % (AUTO) 2.9 % (0.0-8.0); HEMATOCRIT 38.4 % (36-48); IMMATURE GRANULOCYTE ABSOLUTE 0.04 K/uL (0-1); LYMPHOCYTES % (AUTO) 27.4 % (21.0-51.0); MEAN CORPUSCULAR HGB CONC 35.9 g/dL (32.0-36.0); MEAN CORPUSCULAR VOLUME 94.6 fL (79-99); MONOCYTES % (AUTO) 9.4 % (3.0-13.0); NEUTROPHILS # (AUTO) 6.4 K/uL (1.8-7.7); NEUTROPHILS % (AUTO) 59.2 % (40.0-77.0); PLATELET COUNT (AUTO) 346 K/uL (130-400); RED BLOOD CELL COUNT(AUTO) 4.06 MIL/uL (4.00-5.50); RED CELL DISTRIBUTION WIDTH 12.7 % (11.0-15.5); WHITE BLOOD COUNT (AUTO) 10.8 K/uL (4.8-10.8)
[2024-02-25 22:48] LABS: ALBUMIN 3.6 g/dL (3.5-5.0); BILIRUBIN,TOTAL 0.7 mg/dL (0.2-1.0); CREATININE 0.8 mg/dL (0.5-1.0); TOTAL PROTEIN, SERUM 7.3 g/dL (6.0-8.3)
[2024-02-25 23:04] LABS: APPEARANCE,URINE CLEAR (CLEAR); BILIRUBIN,URINE NEGATIVE (NEGATIVE); COLOR,URINE COLORLESS (YELLOW); GLUCOSE, URINE (UA) NEGATIVE (NEGATIVE); KETONES,URINE NEGATIVE (NEGATIVE); LEUKOCYTE ESTERASE ,URINE NEGATIVE Leu/uL (NEGATIVE); NITRATE,URINE NEGATIVE (NEGATIVE); OCCULT BLOOD,URINE NEGATIVE (NEGATIVE); PH,URINE 5.5 (5.0-8.0); PROTEIN,URINE NEGATIVE (NEGATIVE); UROBILINOGEN,URINE 0.2 mg/dL (0.2-1.0)
[2024-02-25 23:07] LABS: ADD UA MICROSCOPIC NO
[2024-02-25 23:20] LABS: POTASSIUM 2.9 mmol/L (3.5-5.1)
[2024-02-25] MEDS ORDERED: IOHEXOL-350 75 ML VIAL IV ONE (23:31)
[2024-02-25] MEDS: PoTASSium BIcarbonate/CIT AC 25 MEQ TABLET.EFF PO ONE (23:57)
[2024-02-25] MEDS: morPHINE 4 MG SYG IVP ONE (23:58)
[2024-02-26] MEDS ORDERED: DICY20TA2 PO (00:10)
[2024-02-26] MEDS ORDERED: METR-172 PO (00:10)
[2024-02-26] MEDS: cefTRIAXone 1G VIAL IVP ONE (00:11)
[2024-02-26 00:15] VITALS: BP 156/74; PULSE 88; RESP 16; O2SAT 99
== END 2024-02-26 00:25 | disposition home or self-care (01) ==
LOC: EDH 21:00
DX: A04.9 Bacterial intestinal infection, unspecified (principal); E87.6 Hypokalemia; Z79.621 Long term (current) use of calcineurin inhibitor; Z94.4 Liver transplant status
CPT/HCPCS: 99285; 74177; 96374; 96361; 96375 ×2; 80053; 83690; 85025; 81003; 36415; 96376; J2270 ×2; J7030; J2405; Q9967; J0696

== ENCOUNTER → 2024-05-01 | Emergency (ER) | payer OTHER, MEDICARE ==
[~2024-05-01] VITALS: Ht 157.5 cm; Wt 98.4 kg
[~2024-05-01] MED LIST changes: -AMOX1TAB16 PO; +ASPI-1005 PO; +ASPIRIN 325MG TAB PO ONE; +CEPH500B PO; -MULT-1203 PO; +TACR1CAP10 PO; -TACR1GRA PO
--- NOTE | 2024-05-01 17:03 | EKG ---
[facility] Test Date: 2024-05-01 Test Time: 17:00:28 Pat Name: JESSIE LYLE Department: ED Room: Gender: F Room Attendants: [id number] : 1955 Requested By: ANNA TAVAREZ Order Number: [id number] Reading MD: Macario Valiente Measurements Intervals [place] Rate: 74 P: 60 AR: 173 QRS: 64 QRSD: 109 T: 20 QT: 388 QTc: 431 Interpretive Statements Sinus rhythm inferior myocardial infarction, old Compared to ECG 01/04/2024 18:52:10 Intraventricular conduction delay no longer present Electronically Signed On 05-02-2024 15:44:13 [employer] by Macario Valiente Please click the below link to view image of tracing.
[2024-05-01 17:06] VITALS: BP 131/76; PULSE 74; RESP 22; TEMP 97.6; O2SAT 95
--- NOTE | 2024-05-01 17:33 | ERN ---
ED Note History of Present Illness Stated Complaint: CHEST PAIN Chief Complaint: Chest Pain Time Seen by MD: 17:03 Time Seen by Midlevel: 17:03 Dictation: The patient is a 68-year-old female with history of liver transplant , tubal ligation presents to the ED for evaluation of chest pain onset this morning. Patient reports shortness a breath and nonproductive cough. reports nasal congestion. Patient reports pain worst with palpation Allergies: Coded Allergies: No Known Drug Allergies (Unverified Allergy, Unknown, 06/21/18) Home Meds Active Scripts Cephalexin Monohydrate (Keflex) 500 Mg Cap, 1 CAP PO QID for 10 Days, #40 CAP 0 Refills Prov:DEVAN OLIVIER DIRECTOR BIOINFORMATICS 03/22/24 Reported Medications Aspirin (ASPIRIN 81MG CHEW TAB) 81 Mg Tab.chew, 1 TAB PO DAILY for 30 Days, #30 TAB 0 Refills 03/20/24 Tacrolimus (Tacrolimus) 1 Mg Capsule, 4 CAP PO BID for 30 Days, #180 CAP 0 Refills 03/20/24 Mag Hydrox/Aluminum Hyd/Simeth (Maalox Advanced Suspension) 200 Mg-200 Mg-20 Mg/5 Ml Oral.susp, 355 ML PO DAILY, ML 10/16/23 Past Medical History Past Medical History: Heart Disease, Hypertension Additional Past Medical Hx: LIVER TRANSPLANT Surgical History: Other, BTL Surgical History Other: KNEE SX, ANKLE SX Family History: HTN Social History: Negative, Lives with family History: Not Applicable RN Note Reviewed/Agreed w/PFSH: Yes Review of System Dictation Constitutional: Negative for fever,chills, and weight loss Eyes: Negative for injury, pain,redness, and discharge ENT: Negative for injury,pain or swelling Cardiovascular: Deferred palpitations, edema Positive for chest pain negative Respiratory: Positive for shortness a breath positive for cough, and wheezing, Abdomen/GI: Negative for abdominal pain, nausea, vomiting, diarrhea, and constipation Back: Negative for injury and pain : Negative for injury, bleeding and discharge MS/Extremity: Negative for injury and deformity Skin: Negative for rash, and discoloration Neuro: Negative for headache, weakness, numbness, tingling, and seizure Psych: Negative for suicide ideation, homicidal ideation, and hallucinations Initial Vital Sign VS Vital Signs Date Time Temp Pulse Resp B/P (MAP) Pulse Ox O2 Delivery O2 Flow Rate FiO2 05/01/24 17:03 97.5 74 22 131/76 95 Room Air 05/01/24 17:06 0 21 Physical Exam Dictation General: awake, alert, NAD Head/Face: Normocephalic, atraumatic Eyes: PERRL, EOMI, vision at baseline ENT: oral cavity clear, TMs clear, no signs of infection Neck: Trachea midline, supple, no nuchal rigidity Cardiovascular: RRR, normal S1/S2, No MRGs, no JVD Respiratory: CTAB, no respiratory distress, No rales or wheezes Abdomen: Soft, non-tender, non-distended, normal bowel sounds, no guarding or rebound. Skin: Warm, dry, normal turgor, no rash MS/Extremity: Pulses equal, no cyanosis, neurovascular intact, FROM Neuro: COAx4, GCS 15, strength 5/5, CN 2-12 intact, normal cerebellar exam, normal gait, Psych: Normal behavior, mood, and affect normal Results (Laboratory/Radiology) Labs Reviewed?: Yes EKG: (+) rhythm EKG Comment: EKG 05/01/2024 1700 ventricular rate 74, regular rate and rhythm, normal sinus rhythm, no STEMI ED Course ED Course Orders Procedure Category Date Status Time 12 Lead Ekg Tracing- EKG 05/01/24 Complete Technical 16:59 Chest 1vw RAD 05/01/24 Resulted 17:25 12 Lead Ekg Tracing- EKG 05/01/24 Logged Technical 17:25 Aspirin 325mg Tab PHA 05/01/24 Complete (Aspirin 325mg Tab) 17:30 Current Medications Medications (Trade) Dose Ordered Sig/Nicolás Route PRN Reason Start Time Stop Time Status Last Admin Dose Admin Aspirin (Aspirin 325mg Tab) 325 mg ONCE ONCE PO 05/01/24 17:30 05/01/24 17:31 DC Vital Signs Date Time Temp Pulse Resp B/P (MAP) Pulse Ox O2 Delivery O2 Flow Rate FiO2 05/01/24 17:06 97.5 74 22 131/76 95 Room Air* 0 21 05/01/24 17:03 97.5 74 22 131/76 95 Room Air HEART Score Response (Comments) Value History: Low suspicion (0) 0 EKG: Normal 0 Age: > 65yrs (+2) 2 Risk Factors: 1-2 risk factors (+1) 1 Total 3 Medical Decision Making MDM MDM: The patient is a 68-year-old female with history of liver transplant , tubal ligation presents to the ED for evaluation of chest pain onset this morning. Patient reports shortness a breath and nonproductive cough. reports nasal congestion. Patient reports pain worst with palpation Differential diagnosis: Chest pain, SOB, ACS, pneumonia, pneumothorax, costochondritis Patient eloped from the lobby without notifying anyone. DX & DISP Disposition: AMA Departure Condition: Stable Referrals: DAVE EGAN (PCP) I have reviewed, & agreed with my scribe's, documentation. (Entered by Alejandra Swartz, acting as a scribe for CODEY Guo) I personally scribed for NIKO GUO ([email or web address]) on 05/01/24 at 17:33. Electronically submitted by Alejandra Swartz ([email or web address]). NIKO GUO May 01, 2024 17:33
--- NOTE | 2024-05-01 18:23 | HMCIMG ---
CHEST 1VW REASON: cp COMPARISON: 01/04/2024 FINDINGS: Single view of the chest was obtained. Lungs are clear. Heart size is normal. There is no pulmonary vascular congestion. Mediastinum and bony thorax appear unremarkable. IMPRESSION: 1. Normal single view chest x-ray.
--- NOTE | 2024-05-01 18:42 | NUR ---
PT CALLED TWICE BUT DID NOT ANSWER
--- NOTE | 2024-05-01 19:14 | NUR ---
CALLED FOR PT IN LOBBY TO MOVE TO RM 17; NO RESPONSE; PT NOT FOUND IN LOBBY.
--- NOTE | 2024-05-01 19:41 | NUR ---
CALLED FOR PT AT 1940, PT NOT FOUND IN LOBBY
== END ==
LOC: EDH 16:57
DX: R07.89 Other chest pain (principal); R05.9 Cough, unspecified; R09.81 Nasal congestion; I10 Essential (primary) hypertension; Z79.621 Long term (current) use of calcineurin inhibitor; Z79.82 Long term (current) use of aspirin; Z94.4 Liver transplant status; Z98.51 Tubal ligation status
CPT/HCPCS: 71045; 93005; 99283

== ENCOUNTER 2024-06-10 07:30 | Emergency (ER) | payer OTHER, MEDICARE ==
[~2024-06-10] VITALS: Ht 157.5 cm; Wt 90.7 kg
[~2024-06-10 07:30] MED LIST changes: -ASPIRIN 325MG TAB PO ONE
--- NOTE | 2024-06-10 08:04 | ERN ---
ED Note History of Present Illness Stated Complaint: NECK PAIN Chief Complaint: Neck Injury Time Seen by MD: 07:32 Dictation: Patient is a 68-year-old female with a past medical history of liver transplant, brought from living facility by EMS due to severe neck pain. States the pain has been there for 24 hours, patient also mentioned that yesterday she slipped slowly and fell on her knee. She denies fever or chills. Allergies: Coded Allergies: No Known Drug Allergies (Unverified Allergy, Unknown, 06/21/18) Home Meds Active Scripts Cyclobenzaprine HCl (Cyclobenzaprine HCl) 7.5 Mg Tablet, 1 TAB PO TID for spasm for 7 Days, #20 TAB 0 Refills Prov:CRISTAL LINN MD 06/10/24 Acetaminophen (Tylenol) 500 Mg Tab, 1 TAB PO Q6HPRN PRN for pain or fever for 15 Days, #60 TAB 0 Refills Prov:CRISTAL LINN MD 06/10/24 Ibuprofen (Ibuprofen) 600 Mg Tablet, 1 TAB PO TID for pain for 10 Days, #30 TAB 0 Refills with food Prov:CRISTAL LINN MD 06/10/24 Cephalexin Monohydrate (Keflex) 500 Mg Cap, 1 CAP PO QID for 10 Days, #40 CAP 0 Refills Prov:DEVAN OLIVIER NP 03/22/24 Reported Medications Aspirin (ASPIRIN 81MG CHEW TAB) 81 Mg Tab.chew, 1 TAB PO DAILY for 30 Days, #30 TAB 0 Refills 03/20/24 Tacrolimus (Tacrolimus) 1 Mg Capsule, 4 CAP PO BID for 30 Days, #180 CAP 0 Refills 03/20/24 Mag Hydrox/Aluminum Hyd/Simeth (Maalox Advanced Suspension) 200 Mg-200 Mg-20 Mg/5 Ml Oral.susp, 355 ML PO DAILY, ML 10/16/23 Past Medical History Past Medical History: Heart Disease, Hypertension Additional Past Medical Hx: LIVER TRANSPLANT Surgical History: Other, BTL Surgical History Other: KNEE SX, ANKLE SX Family History: HTN Social History: Negative, Lives with family History: Not Applicable Review of System Dictation NEGATIVE EXCEPT PER HPI Constitutional: Negative for fever,chills, and weight loss Eyes: Negative for injury, pain,redness, and discharge ENT: Negative for injury,pain or swelling Cardiovascular: denies chest pain, palpitations, and edema Respiratory: Negative for shortness of breath, cough, and wheezing, Abdomen/GI: Negative for abdominal pain, nausea, vomiting, diarrhea, and constipation Back: Negative for injury and pain : Negative for injury, bleeding and discharge MS/Extremity: Reports fall, neck pain. Skin: Negative for rash, and discoloration Neuro: Negative for headache, weakness, numbness, tingling, and seizure Psych: Negative for suicide ideation, homicidal ideation, and hallucinations Initial Vital Sign VS Vital Signs Date Time Temp Pulse Resp B/P (MAP) Pulse Ox O2 Delivery O2 Flow Rate FiO2 06/10/24 07:34 98.1 89 11 131/69 99 Room Air 0 06/10/24 07:35 21 Physical Exam Dictation General: awake, alert, NAD Head/Face: Normocephalic, atraumatic Eyes: PERRL, EOMI, vision at baseline ENT: oral cavity clear, TMs clear, no signs of infection Neck: Trachea midline, supple, no nuchal rigidity Cardiovascular: RRR, normal S1/S2, No MRGs, no JVD Respiratory: CTAB, no respiratory distress, No rales or wheezes Abdomen: Soft , no tender Skin: Warm, dry, normal turgor, no rash MS/Extremity: Severe neck tenderness, range of motion of neck decreased due to pain. Neuro: COAx4, GCS 15, strength 5/5, CN 2-12 intact, normal cerebellar exam, normal gait, Psych: Normal behavior, mood, and affect normal Results (Laboratory/Radiology) Laboratory/Radiology Laboratory Tests Test 06/10/24 08:00 White Blood Count 4.6 K/uL (4.8-10.8) L Red Blood Count 4.28 MIL/uL (4.00-5.50) Hemoglobin 14.2 g/dL (12.0-16.0) Hematocrit 38.6 % (36-48) Mean Corpuscular Volume 90.2 fL (79-99) Mean Corpuscular Hemoglobin 33.2 pg (27.0-33.0) H Mean Corpuscular Hemoglobin Concent 36.8 g/dL (32.0-36.0) H Red Cell Distribution Width 12.3 % (11.0-15.5) Platelet Count 229 K/uL (130-400) Mean Platelet Volume 8.5 fL (7.5-10.5) Immature Granulocyte % (Auto) 0.4 % (0-1) Neutrophils (%) (Auto) 46.0 % (40.0-77.0) Lymphocytes (%) (Auto) 31.9 % (21.0-51.0) Monocytes (%) (Auto) 19.7 % (3.0-13.0) H Eosinophils (%) (Auto) 1.3 % (0.0-8.0) Basophils (%) (Auto) 0.7 % (0.0-5.0) Neutrophils # (Auto) 2.1 K/uL (1.8-7.7) Lymphocytes # (Auto) 1.5 K/uL (1.0-4.8) Monocytes # (Auto) 0.9 K/uL (0.1-1.0) Eosinophils # (Auto) 0.06 K/uL (0.00-0.70) Basophils # (Auto) 0.03 K/uL (0.00-0.20) Absolute Immature Granulocyte (auto 0.02 K/uL (0-1) Nucleated Red Blood Cells 0.0 % (0.0-0.19) White Cell Morphology Comment See comments Sodium Level 123 mmol/L (136-145) L Potassium Level 4.2 mmol/L (3.5-5.1) Chloride Level 87 mmol/L (101-111) *L Carbon Dioxide Level 27 mmol/L (21-32) Blood Urea Nitrogen 9 mg/dL (7-18) Creatinine 1.1 mg/dL (0.5-1.0) H Glomerular Filtration Rate Calc 54 mL/min (>90) Random Glucose 122 mg/dL (70-105) H Total Calcium 9.5 mg/dL (8.5-10.1) Total Bilirubin 0.8 mg/dL (0.2-1.0) Aspartate Amino Transf (AST/SGOT) 46 U/L (10-37) H Alanine Aminotransferase (ALT/SGPT) 45 U/L (12-78) Alkaline Phosphatase 170 U/L (50-136) H Total Protein 7.6 g/dL (6.0-8.3) Albumin 3.7 g/dL (3.5-5.0) Influenza Type A Antigen Negative For Type A Influenza Type B Antigen Negative For Type B SARS-CoV-2 Antigen (Rapid) PRESUMPTIVE NEGATIVE Group A Streptococcus Rapid negative (NEGATIVE) ED Course ED Course Orders Procedure Category Date Status Time Ct Head/Brain W/O CT 06/10/24 Resulted Contrast 07:40 Ct Cervical Spine W/O CT 06/10/24 Resulted Contrast 07:40 Cyclobenzaprine Hcl PHA 06/10/24 Complete (Cyclobenzaprine Hcl 08:00 Acetaminophen With PHA 06/10/24 Complete Codeine (Tylenol-Code 08:00 Comprehensive LAB 06/10/24 Complete Metabolic Panel 08:15 Influenza Type A & B, LAB 06/10/24 Complete Rapid 08:16 Covid19 (Sars Antigen LAB 06/10/24 Complete Rapid) 08:16 Rapid (Group A Strep) LAB 06/10/24 Complete 08:16 Cbc With Differential LAB 06/10/24 Complete 08:00 0.9%Nacl 1000ml (Ns PHA 06/10/24 In Process 1000ml) 10:00 Current Medications Medications (Trade) Dose Ordered Sig/Nicolás Route PRN Reason Start Time Stop Time Status Last Admin Dose Admin Acetaminophen/ Codeine Phosphate (TYLenol-coDEINE TAB) 1 tab ONCE ONCE PO 06/10/24 08:00 06/10/24 08:01 DC 06/10/24 08:11 Cyclobenzaprine HCl (Cyclobenzaprine HCl) 10 mg ONCE ONCE PO 06/10/24 08:00 06/10/24 08:01 DC 06/10/24 08:11 Sodium Chloride 1,000 ml @ 0 mls/hr Q0M IV 06/10/24 10:00 07/10/24 09:59 06/10/24 10:50 Vital Signs Date Time Temp Pulse Resp B/P (MAP) Pulse Ox O2 Delivery O2 Flow Rate FiO2 06/10/24 10:21 98 16 136/95 99 Room Air* 0 21 06/10/24 09:22 98.1 93 20 147/83 98 Room Air* 0 21 06/10/24 08:30 91 21 113/95 99 Room Air* 0 21 06/10/24 07:35 98.1 85 18 131/69 99 Room Air* 0 21 06/10/24 07:34 98.1 89 11 131/69 99 Room Air 0 Medical Decision Making MDM 68-year-old female status post fall, came to the ER due to neck pain which he states the severe. Has decreased range of motion due to pain. MDM: Cervical spine strain Cervical spine fracture Muscle of neck strain. CT of head and neck ordered. The pain medication Tylenol 3 ordered also muscle relaxant Flexeril. CT images of neck and head was within normal limits. The patient laboratory was remarkable for low-sodium 123 but she is asy mptomatic, sodium IV 1 L foods given The patient he will be discharged on pain medication and muscle relaxant. DX & DISP Disposition: Discharge Departure Impression: Primary Impression: Cervical spine pain Additional Impressions: Neck strain, Neck muscle strain, Strain of neck muscle, Hyponatremia Condition: Stable Scripts Cyclobenzaprine HCl (Cyclobenzaprine HCl) 7.5 Mg Tablet 1 TAB PO TID for spasm for 7 Days, #20 TAB 0 Refills Prov: CRISTAL LINN MD 06/10/24 Acetaminophen (Tylenol) 500 Mg Tab 1 TAB PO Q6HPRN PRN for pain or fever for 15 Days, #60 TAB 0 Refills Prov: CRISTAL LINN MD 06/10/24 Ibuprofen (Ibuprofen) 600 Mg Tablet 1 TAB PO TID for pain for 10 Days, #30 TAB 0 Refills with food Prov: CRISTAL LINN MD 06/10/24 Additional Instructions: RETURN TO ER FOR ANY ACUTE OR WORSENING SYMPTOMS. FOLLOW-UP IN 1-2 DAYS WITH PRIMARY PROVIDER FOR RECHECK OF TODAY'S SYMPTOMS. Referrals: DAVE EGAN (PCP) CRISTAL LINN MD Jun 10, 2024 08:04
[2024-06-10] MEDS: acetaMINOPHEN WITH coDEINE 1 TAB TAB PO ONE (08:11)
[2024-06-10] MEDS: CYCLOBENZAPRINE HCL 10 MG TABLET PO ONE (08:11)
--- NOTE | 2024-06-10 08:17 | HMCIMG ---
CT CERVICAL SPINE WITHOUT CONTRAST INDICATION: Neck pain after fall TECHNIQUE: Contiguous axial computed tomography imaging using 2 mm slice thickness through the cervical spine. Reconstructions in the sagittal and coronal planes. CT was performed with one or more of the following dose reduction techniques: Automated exposure control, adjustment of the mA and/or kV according to patient size, or use of iterative reconstruction technique. COMPARISON: None. FINDINGS: Straightening of the normal lordosis may be related to overlying muscle spasm, underlying degenerative joint disease and/or patient positioning. Vertebral bodies are normal stature without evidence for compression deformity or fracture. No evidence for subluxation. Multilevel mild to moderate cervical spondylosis. The craniocervical junction appears normal. The atlantoaxial articulation is within normal limits. The dens is intact. Normal variant incomplete fusion of the posterior C1 ring. The pre- and paravertebral soft tissues appear unremarkable. IMPRESSION: No evidence for fracture or subluxation.
--- NOTE | 2024-06-10 08:18 | HMCIMG ---
CT HEAD WITHOUT CONTRAST INDICATION: Fall TECHNIQUE: Noncontrast axial helical CT images from the vertex through the skull base using 5 mm slice thickness without contrast material. CT was performed with one or more of the following dose reduction techniques: Automated exposure control, adjustment of the mA and/or kV according to patient size, or use of iterative reconstruction technique. COMPARISON: 09/06/2016 FINDINGS: Generalized mild to moderate cerebral cortical atrophy. No evidence for abnormal extra-axial fluid collections or masses. The ventricles and sulci are normal in size and configuration. No evidence for intracranial parenchymal, epidural, or subdural hemorrhage, mass effect or midline shift. The jc-white matter differentiation is well preserved. No secondary evidence to suggest acute ischemia. The brainstem and cerebellum appear normal. The visualized orbits appear unremarkable. Mild bilateral maxillary sinus mucosal thickening. Remainder of the visible paranasal sinuses and mastoid air cells are clear. The calvarium appears normal. IMPRESSION: No acute intracranial process identified.
[2024-06-10 08:32] LABS: HEMATOCRIT 38.6 % (36-48); MEAN CORPUSCULAR HEMOGLOBIN 33.2 pg (27.0-33.0); MEAN CORPUSCULAR HGB CONC 36.8 g/dL (32.0-36.0); MEAN CORPUSCULAR VOLUME 90.2 fL (79-99); PLATELET COUNT (AUTO) 229 K/uL (130-400); RED BLOOD CELL COUNT(AUTO) 4.28 MIL/uL (4.00-5.50); RED CELL DISTRIBUTION WIDTH 12.3 % (11.0-15.5); WHITE BLOOD COUNT (AUTO) 4.6 K/uL (4.8-10.8)
[2024-06-10 08:37] LABS: BASOPHILS # (AUTO) 0.03 K/uL (0.00-0.20); BASOPHILS % (AUTO) 0.7 % (0.0-5.0); EOSINOPHILS # (AUTO) 0.06 K/uL (0.00-0.70); EOSINOPHILS % (AUTO) 1.3 % (0.0-8.0); IMMATURE GRANULOCYTE ABSOLUTE 0.02 K/uL (0-1); LYMPHOCYTES # (AUTO) 1.5 K/uL (1.0-4.8); LYMPHOCYTES % (AUTO) 31.9 % (21.0-51.0); MONOCYTES # (AUTO) 0.9 K/uL (0.1-1.0); MONOCYTES % (AUTO) 19.7 % (3.0-13.0); NEUTROPHILS # (AUTO) 2.1 K/uL (1.8-7.7)
[2024-06-10 09:01] LABS: RAPID GROUP A STREP negative (NEGATIVE)
[2024-06-10 09:10] LABS: COVID19 (SARS ANTIGEN RAPID) PRESUMPTIVE NEGATIVE (NEGATIVE); INFLUENZA TYPE A Negative For Type A (NEGATIVE); INFLUENZA TYPE B Negative For Type B (NEGATIVE)
[2024-06-10 09:17] LABS: ALBUMIN 3.7 g/dL (3.5-5.0); BILIRUBIN,TOTAL 0.8 mg/dL (0.2-1.0); CREATININE 1.1 mg/dL (0.5-1.0); POTASSIUM 4.2 mmol/L (3.5-5.1); TOTAL PROTEIN, SERUM 7.6 g/dL (6.0-8.3)
[2024-06-10] MEDS ORDERED: CYCL7.5T27 PO (10:08)
[2024-06-10] MEDS ORDERED: IBUP-2070 PO (10:08)
[2024-06-10] MEDS ORDERED: ACET-66 PO (10:08)
[2024-06-10] MEDS: 0.9%NACL 1000ML 1,000 ML IV SCH (10:50)
[2024-06-10 11:45] VITALS: BP 119/51; PULSE 81; RESP 16; TEMP 98.1; O2SAT 99
== END 2024-06-10 12:17 | disposition home or self-care (01) ==
LOC: EDH 07:30
DX: S16.1XXA Strain of muscle, fascia and tendon at neck level, initial encounter (principal); E87.1 Hypo-osmolality and hyponatremia; I10 Essential (primary) hypertension; Z79.1 Long term (current) use of non-steroidal anti-inflammatories (NSAID); Z79.621 Long term (current) use of calcineurin inhibitor; Z79.82 Long term (current) use of aspirin; Z94.4 Liver transplant status; Z98.51 Tubal ligation status; Z20.822 Contact with and (suspected) exposure to COVID-19; W01.0XXA Fall on same level from slipping, tripping and stumbling without subsequent striking against object, initial encounter; Y93.89 Activity, other specified; Y92.89 Other specified places as the place of occurrence of the external cause; Y99.8 Other external cause status
CPT/HCPCS: 36415; 70450; 72125; 80053; 85025; 87426; 87804; 87880; 99285

== ENCOUNTER 2024-11-05 06:15 | Emergency (ER) | payer OTHER, MEDICARE ==
[~2024-11-05] VITALS: Ht 157.5 cm; Wt 84.8 kg
[~2024-11-05 06:15] MED LIST changes: +ACET-66 PO; +CYCL7.5T27 PO; +IBUP-2070 PO
--- NOTE | 2024-11-05 06:41 | ERN ---
General Chief Complaint: Hand Problem/Injury Stated Complaint: L HAND PAIN S/P FALL YESTERDAY AFTERNOON Time Seen by MD: 06:25 History of Present Illness Initial Comments Patient states she fell onto grass yesterday afternoon because of the shoes she was wearing. She states no loss of consciousness no lightheadedness, she simply tripped. She did feel her neck snap back and forth but currently she has no neck pain. She broke her fall with her left hand and today her left hand and wrist is more swollen and tender and feels warm. Allergies: Coded Allergies: No Known Drug Allergies (Unverified Allergy, Unknown, 06/21/18) Home Meds Active Scripts Cyclobenzaprine HCl (Cyclobenzaprine HCl) 7.5 Mg Tablet, 1 TAB PO TID for spasm for 7 Days, #20 TAB 0 Refills Prov:CRISTAL LINN MD 06/10/24 Acetaminophen (Tylenol) 500 Mg Tab, 1 TAB PO Q6HPRN PRN for pain or fever for 15 Days, #60 TAB 0 Refills Prov:CRISTAL LINN MD 06/10/24 Ibuprofen (Ibuprofen) 600 Mg Tablet, 1 TAB PO TID for pain for 10 Days, #30 TAB 0 Refills with food Prov:CRISTAL LINN MD 06/10/24 Cephalexin Monohydrate (Keflex) 500 Mg Cap, 1 CAP PO QID for 10 Days, #40 CAP 0 Refills Prov:DEVAN OLIVIER NP 03/22/24 Reported Medications Aspirin (ASPIRIN 81MG CHEW TAB) 81 Mg Tab.chew, 1 TAB PO DAILY for 30 Days, #30 TAB 0 Refills 03/20/24 Tacrolimus (Tacrolimus) 1 Mg Capsule, 4 CAP PO BID for 30 Days, #180 CAP 0 Refills 03/20/24 Mag Hydrox/Aluminum Hyd/Simeth (Maalox Advanced Suspension) 200 Mg-200 Mg-20 Mg/5 Ml Oral.susp, 355 ML PO DAILY, ML 10/16/23 Past Medical History Past Medical History: Liver Disease Medical History Other: LIVER TRANSPLANT Past Surgical History: Other, BTL Surgical History Other: L ANKLE FX, LIVER TRANSPLANT 2019 Family History Family History: HTN Social History Social History: Negative, Lives with family Female( History) History: Not Applicable ROS Dictation Review of systems is negative beyond what is in the chief complaint. Physical Exam General Appearance: (+) mild distress Orientation: (+) alert, (+) oriented x 3 Head/Face Trauma: No Eye: bilateral eye normal inspection, bilateral eye PERRL, bilateral eye EOMI Ear, Nose, Throat: (+) hearing grossly normal, (+) normal ENT inspection, (+) moist mucous membraine Neck: (+) normal inspection, (+) supple, (+) non-tender Neck Comment Patient's neck has right sided trapezius muscle tenderness with a tight knot of muscle right where she states she has neck pain. There is no C-spine tenderness. Extremities Comment Patient's left hand has warmth and increased tenderness on the dorsal surface. The wrist itself is not tender. There was no ecchymosis no marked deformities. Pulses are intact. Results Laboratory and Microbiology Labs Reviewed?: Yes EKG/XRAY/US/CT/MRI X-RAY Comment [address] [id number] IMAGING REPORT Signed PATIENT: JESSIE LYLE MR#: [id number] : 1955 SEX: F AGE: 69 LOCATION: [facility] ORDER 7 STATUS: [facility] REPORT#: [id number] SERVICE 6 REASON: FALL INJURY ORDERING PHYSICIAN: YOSELIN SRIVASTAVA MD PROCEDURE: WRST 3V LT - WRIST COMP 3+VWS LT EXAM: CR right Wrist, 3 View. CLINICAL HISTORY: FALL INJURY COMPARISON: None provided. FINDINGS: BONES: No acute osseous abnormality. No acute fracture. JOINTS: No dislocation. The carpal bones demonstrate normal alignment. Mild degenerative changes in the radiocarpal joints. SOFT TISSUES: The soft tissues are unremarkable. IMPRESSION: No acute osseous abnormality. No acute fracture or dislocation. /[place] DICTATED BY: DOLORES OLMEDO MD DATE: 11/05/24752 ELECTRONICALLY SIGNED BY: DOLORES OLMEDO MD DATE: 11/05/24752 [facility] Plain films of the patient's right hand has been ordered. I do not feel the need to image the patient's C-spine as she has no neurologic deficits and has no central C-spine tenderness. Moreover the only paraspinal muscle tender in his she has is a pinpoint region of a small not of muscle. Plain films of the left hand and wrist are negative for fractures there are numerous arthritic changes. MDM: Differential diagnosis: Fall, wrist sprain, wrist fracture, Rationale: Tests considered and ordered secondary to shared decision making include: Previous outside records reviewed: Old ER visits. Risk of complication and/or morbidity or mortality of patient management: None Medications-Per medication reconciliation Need for hospitalization: Patient does not meet criteria for hospitalization. Patient is a 69-year-old female coming in complaining of left wrist pain. X-ray did not disclose acute findings. The splint was placed patient states her pain improved. Patient will be discharged in stable condition with a diagnosis of wrist sprain. I also advised her appropriate follow up with PCP for ongoing management. ED Course Orders Procedure Category Date Status Time Hand 3+Vws Lt RAD 11/05/24 Resulted 06:27 Wrist Comp 3+Vws Lt RAD 11/05/24 Resulted 06:27 Ketorolac PHA 11/05/24 Complete Tromethamine 30mg/Ml 07:30 Current Medications Medications (Trade) Dose Ordered Sig/Nicolás Route PRN Reason Start Time Stop Time Status Last Admin Dose Admin Ketorolac Tromethamine (toRADol) 30 mg ONCE ONCE IM 11/05/24 07:30 11/05/24 07:31 DC 11/05/24 07:57 Vital Signs Date Time Temp Pulse Resp B/P (MAP) Pulse Ox O2 Delivery O2 Flow Rate FiO2 11/05/24 07:24 98.2 90 20 105/68 97 Room Air* 0 21 11/05/24 06:17 99.0 100 16 138/79 96 Room Air 0 DX & DISP Disposition: Discharge Departure Impression: Primary Impression: Wrist sprain Additional Impression: Fall Condition: Stable Scripts Diclofenac Sodium (Voltaren Arthritis Pain) 1 % Gel..gram. 5 GM TP BID for 7 Days, #1 TUBE Prov: VICTORIA SHANNON MD 11/05/24 Additional Instructions: FOLLOW-UP WITH PRIMARY CARE PROVIDER IN 1 TO 2 DAYS. TAKE MEDICATIONS DIRECTED HERE IN THE EMERGENCY ROOM. OKAY TO CONTINUE HOME MEDICATIONS UNLESS OTHERWISE DISCUSSED DURING YOUR VISIT IN THE EMERGENCY ROOM TODAY. RETURN TO YOUR NEAREST EMERGENCY ROOM IF SYMPTOMS WORSEN OR IF THERE IS NO IMPROVEMENT. CALL 911 IF YOU NEED IMMEDIATE ASSISTANCE. TAKE TYLENOL [id number] NEEDED AND IF NO CONTRAINDICATIONS ARE PRESENT. INCREASE ORAL HYDRATION. A WOUND CULTURE OR URINE CULTURE WAS ORDERED HERE IN THE EMERGENCY ROOM DEPARTMENT PLEASE FOLLOW-UP WITH PRIMARY CARE PROVIDER AND ADVISE THEM TO GET REPORTS FROM OUR FACILITY. IF YOU HAD ANY VALDEZ WRAP/SPLINTS THAT WERE APPLIED HERE, PLEASE DO NOT REMOVE THEM UNTIL YOU SEE YOUR PRIMARY CARE OR SPECIALTY. Referrals: Referrals: DAVE EGAN (PCP) Time of Disposition: 08:16 YOSELIN SRIVASTAVA MD Nov 05, 2024 06:41 VICTORIA SHANNON MD Nov 05, 2024 08:17
--- NOTE | 2024-11-05 06:54 | HMCIMG ---
EXAM: CR right Wrist, 3 View. CLINICAL HISTORY: FALL INJURY COMPARISON: None provided. FINDINGS: BONES: No acute osseous abnormality. No acute fracture. JOINTS: No dislocation. The carpal bones demonstrate normal alignment. Mild degenerative changes in the radiocarpal joints. SOFT TISSUES: The soft tissues are unremarkable. IMPRESSION: No acute osseous abnormality. No acute fracture or dislocation. /[place]
--- NOTE | 2024-11-05 06:54 | HMCIMG ---
EXAM: CR right Hand, 3 View. CLINICAL HISTORY: FALL INJURY COMPARISON: None provided. FINDINGS: BONES: No acute osseous pathology evident. JOINTS: No evidence of dislocation. The joint spaces are normal. SOFT TISSUES: The soft tissues appear within normal limits. No radiopaque foreign body is seen. IMPRESSION: No acute pathology evident. No acute fracture or dislocation. /[place]
[2024-11-05 07:24] VITALS: BP 105/68; PULSE 90; RESP 20; TEMP 98.3; O2SAT 97
[2024-11-05] MEDS ORDERED: DICL20GE TP (08:16)
--- NOTE | 2024-11-05 08:35 | NUR ---
VOLAR SPLINT PLACED ON LEFT WRIST. PT TOLERATED PROCEDURE WELL WITH MINIMAL PAIN
== END 2024-11-05 08:52 | disposition home or self-care (01) ==
LOC: EDH 06:15
DX: S63.592A Other specified sprain of left wrist, initial encounter (principal); Z79.1 Long term (current) use of non-steroidal anti-inflammatories (NSAID); Z79.621 Long term (current) use of calcineurin inhibitor; Z79.82 Long term (current) use of aspirin; Z94.4 Liver transplant status; Z98.51 Tubal ligation status; W18.39XA Other fall on same level, initial encounter; Y93.89 Activity, other specified; Y92.89 Other specified places as the place of occurrence of the external cause; Y99.8 Other external cause status
CPT/HCPCS: 99284; 73130; 73110; 29125; 96372; J1885